=== PATIENT | female | born 1990 | race Two or more races ===

== ENCOUNTER 2017-04-11 22:59 | Emergency (ER) | payer OTHER ==
[~2017-04-11] VITALS: Ht 170.2 cm; Wt 106.6 kg
[2017-04-11 23:18] VITALS: BP 136/77
[2017-04-12] MEDS ORDERED: LIDOCAINE VISCOUS 2% UD 15 ML UDC ONE (03:27)
[2017-04-12] MEDS ORDERED: MAG HYDROX/AL HYDROX/SIMETH 30 ML UDC ONE (03:27)
[2017-04-12] MEDS ORDERED: ONDANSETRON 4 MG TAB.RAPDIS ONE (03:27)
[2017-04-12] MEDS ORDERED: ONDANSETRON 4 MG TAB.RAPDIS SL ONE (03:30)
[2017-04-12] MEDS ORDERED: MAG HYDROX/AL HYDROX/SIMETH 30 ML UDC PO ONE (03:30)
[2017-04-12] MEDS ORDERED: LIDOCAINE VISCOUS 2% UD 15 ML UDC MM ONE (03:30)
== END 2017-04-12 03:58 | disposition home or self-care (01) ==
LOC: ER 23:02
DX: K21.9 Gastro-esophageal reflux disease without esophagitis (principal)
CPT/HCPCS: 99283; A4606; Q0162; Z7610

== ENCOUNTER 2017-04-25 21:01 | Emergency (ER) | payer OTHER ==
[~2017-04-25] VITALS: Ht 167.6 cm; Wt 108.9 kg
--- NOTE | 2017-04-25 21:28 | NUR ---
pt ambulatory w/ steady gait for c/o intermittent lower abd cramping, reports notice blood when wiping herself today, took 3 test showed positive, lmp 03/13/17, A3. AOx4, afebrile w/ resp even & unlabored, denies any pain, or hematuria at this time w/ nad noted. Urine obtained & sent to lab. Pending further lisa alfaro MD.
[2017-04-25 21:48] LABS: APPEARANCE,URINE Clear (CLEAR); BILIRUBIN,URINE Negative (NEGATIVE); BLOOD, URINE Moderate Ery/uL (NEGATIVE); COLOR,URINE Yellow (YELLOW); KETONES,URINE Trace (NEGATIVE); LEUKOCYTE ESTERASE ,URINE Negative (NEGATIVE); NITRITE, URINE Negative (NEGATIVE); PH,URINE 6.5 (5.0-8.0); PROTEIN,URINE Negative (NEGATIVE); UGLUCOSE Negative (NEGATIVE); UROBILINOGEN,URINE 0.2 EU/dL (0.2)
--- NOTE | 2017-04-25 21:48 | NUR ---
sr technical sales consultant at bedside for blood draw.
--- NOTE | 2017-04-25 21:56 | NUR ---
US tech at bedside for US pelvis.
[2017-04-25 21:58] LABS: BACTERIA,URINE None seen /HPF (None Seen); SQUAMOUS EPITHELIAL CELL,UR Rare /HPF (None Seen); WBC,URINE 0-2 /HPF (0-3)
--- NOTE | 2017-04-25 23:19 | NUR ---
HAJA Lion at bedside for update on pt status. Ambulatory w/ steady gait to restroom, nad noted.
--- NOTE | 2017-04-25 23:30 | NUR ---
Awaiting US report.
[2017-04-25 23:39] VITALS: BP 138/72
--- NOTE | 2017-04-25 23:39 | NUR ---
Patient discharged to home in stable condition. Written and verbal after care instructions given. Patient verbalizes understanding of instruction.
== END 2017-04-25 23:40 | disposition home or self-care (01) ==
LOC: ER 21:01
DX: O20.0 Threatened abortion (principal)
CPT/HCPCS: 36415; 76856-TC; 81000-TC; 84702-TC; A4606; Z7610